=== PATIENT | male | born 1975 | race Caucasian/White ===

== ENCOUNTER 2018-04-26 23:15 | Emergency (ER) | payer BC ==
[2018-04-26 23:24] VITALS: BP 117/81; PULSE 67; RESP 14; TEMP 98.6; O2SAT 98
--- NOTE | 2018-04-27 00:31 | C.PDOC ---
History Of Present Illness 42 y/o male presents to the ED complaining of a sore throat for 2 days. Pain is now worse on the right side, and radiating to the right ear. Patient denies any fever, URI symptoms, headache, or dizziness. He has not taken any medications at home. Time Seen by Provider: 04/26/18 23:48 Chief Complaint (Nursing): ENT Problem History Per: Patient History/Exam Limitations: no limitations Onset/Duration Of Symptoms: Days Current Symptoms Are (Timing): Still Present Past Medical History Reviewed: Historical Data, Nursing Documentation, Vital Signs Vital Signs: Last Vital Signs Temp 98.6 F 04/26/18 23:22 Pulse 67 04/26/18 23:22 Resp 14 04/26/18 23:22 BP 117/81 04/26/18 23:22 Pulse Ox 98 04/27/18 00:33 - Medical History PMH: No Chronic Diseases Surgical History: No Surg Hx Family History: States: No Known Family Hx - Social History Hx Tobacco Use: No Hx Alcohol Use: No Hx Substance Use: No - Immunization History Hx Tetanus Toxoid Vaccination: No Hx Influenza Vaccination: No Hx Pneumococcal Vaccination: No Review Of Systems Constitutional: Negative for: Fever, Chills ENT: Positive for: Ear Pain, Throat Pain. Negative for: Nose Congestion Respiratory: Negative for: Cough, Sputum Neurological: Negative for: Headache, Dizziness Physical Exam - Physical Exam Appears: Non-toxic, No Acute Distress Skin: Normal Color, Warm, Dry Head: Atraumatic, Normacephalic Eye(s): bilateral: Normal Inspection, PERRL, EOMI Ear(s): Bilateral: Normal Oral Mucosa: Moist Throat: Erythema (with tonsillar enlargement), No Exudate, No Drooling Neck: Supple Lymphatic: Adenopathy (Tender submandibular adenopathy, right > left) Chest: Symmetrical Cardiovascular: Rhythm Regular Respiratory: No Rales, No Rhonchi, No Wheezing Neurological/Psych: Oriented x3, Normal Speech ED Course And Treatment O2 Sat by Pulse Oximetry: 98 (RA) Pulse Ox Interpretation: Normal Progress Note: Given initial dose of penicillin with PO Tylenol and Motrin in the ED. Patient counseled regarding diagnosis and treatment plan. Will discharge home with rx for Motrin and Penicillin. Advised patient to follow up with PMD for further evaluation. Disposition Counseled Patient/Family Regarding: Diagnosis, Need For Followup, Rx Given - Disposition Referrals: [facility] [Outside] Disposition: HOME/ ROUTINE Disposition Time: 00:28 Condition: STABLE Additional Instructions: Please follow up with PMD Take meds as directed Return to ER if worse Prescriptions: Ibuprofen [Motrin] 600 mg PO TID #20 tab Penicillin VK [Penicillin VK Tab] 500 mg PO QID #28 tab Instructions: Sore Throat, Adult (DC) Forms: TOOVIA (Tajik) - POA Present On Arrival: None - Clinical Impression Clinical Impression: Pharyngitis - PA / CLINICAL TRIALS MANAGER / Resident Statement MD/DO has reviewed & agrees with the documentation as recorded. - Scribe Statement The provider has reviewed the documentation as recorded by the Scribe (Alice De León) All medical record entries made by the Scribe were at my direction and personally dictated by me. I have reviewed the chart and agree that the record accurately reflects my personal performance of the history, physical exam, medical decision making, and the department course for this patient. I have also personally directed, reviewed, and agree with the discharge instructions and disposition.
== END 2018-04-27 00:44 | disposition home or self-care (01) ==
LOC: C.ER 23:15
DX: J02.9 Acute pharyngitis, unspecified (principal)